=== PATIENT | male | born 1940 | race Two or more races ===

== ENCOUNTER 2017-02-01 11:19 | Emergency (ER) | payer OTHER ==
[~2017-02-01 11:19] MED LIST: DIGOXIN0.25 M1 PO; MECLIZINE HCL25 M1 PO; METOPROLOL SUCC50 M1 PO; MOT600 PO; ZOC20 PO
[2017-02-01 12:01] LABS: BASOPHIL % 0.6 % (0-2)
[2017-02-01 12:02] LABS: PLATELET COUNT 126 x10^3mcL (130-400); RED CELL DISTRIBUTION WIDTH 16.2 % (11.5-14.5)
[2017-02-01 12:03] LABS: microscopic required? NO
[2017-02-01 12:13] LABS: urine erythrocyte NEGATIVE (NEGATIVE)
[2017-02-01 12:36] LABS: CARBON DIOXIDE 22.5 mmol/L (21-32); CHLORIDE SERUM 104 mmol/L (98-107); CREATININE SERUM 0.8 mg/dL (0.7-1.3); GLUCOSE SERUM 122 mg/dL (74-106); POTASSIUM SERUM 3.8 mmol/L (3.5-5.1); SODIUM SERUM 139 mmol/L (136-145)
[2017-02-01 12:41] LABS: ALBUMIN 3.6 g/dL (3.4-5.0); ALKALINE PHOSPHATASE 99 U/L (46-116); ALT/SGPT 38 U/L (16-63); AST/SGOT 31 U/L (15-37); BILIRUBIN TOTAL 0.48 mg/dL (0.20-1.00); MAGNESIUM 2.1 mg/dL (1.8-2.4); TOTAL PROTEIN, SERUM 6.7 g/dL (6.4-8.2)
[2017-02-01 13:36] VITALS: BP 136/74
== END 2017-02-01 13:36 | disposition home or self-care (01) ==
LOC: ED 11:19
PROVIDERS: Emergency Medicine
DX: M54.9 Dorsalgia, unspecified (principal); R60.0 Localized edema; I48.91 Unspecified atrial fibrillation; E78.5 Hyperlipidemia, unspecified
CPT/HCPCS: 83880

== ENCOUNTER 2017-06-05 16:44 | Inpatient (IN) | payer OTHER ==
[~2017-06-05] VITALS: Ht 154.9 cm; Wt 73.1 kg
[2017-06-05 18:53] LABS: CALCIUM 8.5 mg/dL (8.5-10.1); CARBON DIOXIDE 20.1 mmol/L (21-32); CHLORIDE SERUM 96 mmol/L (98-107); CREATININE SERUM 0.7 mg/dL (0.7-1.3); GLUCOSE SERUM 98 mg/dL (74-106); POTASSIUM SERUM 3.7 mmol/L (3.5-5.1); SODIUM SERUM 131 mmol/L (136-145)
[2017-06-05 18:56] LABS: ALBUMIN 3.5 g/dL (3.4-5.0); ALKALINE PHOSPHATASE 131 U/L (46-116); ALT/SGPT 93 U/L (16-63); AST/SGOT 114 U/L (15-37); BILIRUBIN TOTAL 0.8 mg/dL (0.20-1.00); PHOSPHOROUS 4.6 mg/dL (2.5-4.9); TOTAL PROTEIN, SERUM 7.8 g/dL (6.4-8.2); URIC ACID 4.4 mg/dL (3.5-7.2)
[2017-06-05 19:00] LABS: CHOLESTEROL 264 mg/dL (<200)
[2017-06-05 19:21] LABS: PLATELET COUNT 120 x10^3mcL (130-400); RED CELL DISTRIBUTION WIDTH 16.8 % (11.5-14.5)
[2017-06-05 19:56] LABS: MONOCYTE 9 % (0-7); SEGMENTED NEUTROPHILS 53 % (37-75)
[2017-06-05 19:57] LABS: BAND NEUTROPHIL 1 % (0-10); BASOPHIL 0 % (0-2); PLATELET MORPHOLOGY LARGE PLATELET SEEN; rbc morphology (normal/abnorm) ABNORMAL (NORMAL)
[2017-06-05 21:07] LABS: T3 TOTAL 0.77 ng/mL
[2017-06-05 21:11] LABS: FREE T4 0.88 ng/dL (0.76-1.46); FREE THYROXINE INDEX 2.7 ug/dL (1.4-4.5); T4(THYROXINE) 6.6 ug/dL (4.7-13.3)
[2017-06-05 21:14] VITALS: BP 113/78
[2017-06-05 21:16] LABS: CHOLESTEROL/HDL RATIO 1.4
[2017-06-06 04:50] VITALS: BP 145/95
[2017-06-06 09:00] LABS: microscopic required? NO
[2017-06-06 10:00] VITALS: BP 144/89
[2017-06-06 10:00] LABS: urine erythrocyte NEGATIVE (NEGATIVE)
[2017-06-06 10:04] LABS: AMPHETAMINE QUAL UR NONE DETECTED (NEG <=1000)
[2017-06-06 17:04] VITALS: BP 150/81
[2017-06-06 20:43] VITALS: BP 122/76
[2017-06-07 05:02] VITALS: BP 155/85
[2017-06-07 06:00] LABS: BASOPHIL % 0.4 % (0-2); PLATELET COUNT 138 x10^3mcL (130-400)
[2017-06-07 06:08] LABS: AMYLASE 70 U/L (25-115); CALCIUM 8.9 mg/dL (8.5-10.1); CARBON DIOXIDE 22.4 mmol/L (21-32); CHLORIDE SERUM 98 mmol/L (98-107); CREATININE SERUM 0.9 mg/dL (0.7-1.3); GLUCOSE SERUM 109 mg/dL (74-106); LIPASE 153 IU/L (73-393); POTASSIUM SERUM 3.7 mmol/L (3.5-5.1); SODIUM SERUM 135 mmol/L (136-145)
[2017-06-07 06:31] LABS: RED CELL DISTRIBUTION WIDTH 16.3 % (11.5-14.5)
[2017-06-07 08:52] VITALS: BP 128/77
[2017-06-07 14:00] VITALS: BP 125/82
[2017-06-07 18:21] VITALS: BP 117/74
[2017-06-07 21:14] VITALS: BP 134/81
[2017-06-08 05:04] VITALS: BP 118/69
[2017-06-08 06:32] LABS: PLATELET COUNT 128 x10^3mcL (130-400); RED CELL DISTRIBUTION WIDTH 16.2 % (11.5-14.5)
[2017-06-08 06:55] LABS: CARBON DIOXIDE 23.5 mmol/L (21-32); CHLORIDE SERUM 101 mmol/L (98-107); GLUCOSE SERUM 74 mg/dL (74-106); POTASSIUM SERUM 3.7 mmol/L (3.5-5.1); SODIUM SERUM 137 mmol/L (136-145)
[2017-06-08 06:56] LABS: CALCIUM 8.7 mg/dL (8.5-10.1); CREATININE SERUM 0.8 mg/dL (0.7-1.3)
[2017-06-08 10:00] VITALS: BP 97/69
[2017-06-08 12:31] LABS: BAND NEUTROPHIL 3 % (0-10); BASOPHIL 0 % (0-2); MONOCYTE 7 % (0-7); PLATELET MORPHOLOGY PLATELETS DECREASED; SEGMENTED NEUTROPHILS 79 % (37-75); rbc morphology (normal/abnorm) NORMAL (NORMAL)
[2017-06-08 13:55] VITALS: BP 146/71
[2017-06-08 18:16] VITALS: BP 144/85
[2017-06-08] MEDS ORDERED: COUMADIN4 MG PO (18:43)
[2017-06-08] MEDS ORDERED: THI100 PO ×2 (18:44→20:31)
[2017-06-08] MEDS ORDERED: FOL1 PO ×2 (18:45→20:31)
[2017-06-08] MEDS ORDERED: MECLIZINE HYDRO25 M1 PO (18:54)
[2017-06-08] MEDS ORDERED: METOPROLOL SUCC50 M2 PO (18:54)
[2017-06-08 18:56] VITALS: BP 144/85
== END 2017-06-08 19:40 | disposition home or self-care (01) | DRG 917 ==
LOC: ED 16:44 → DU 20:17
PROVIDERS: Emergency Medicine; Student in an Organized Health Care Education/Training Program; ADMIT Family Medicine
DX: T51.0X1A Toxic effect of ethanol, accidental (unintentional), initial encounter (principal); G92 Toxic encephalopathy; K85.90 Acute pancreatitis without necrosis or infection, unspecified; F10.231 Alcohol dependence with withdrawal delirium; E87.1 Hypo-osmolality and hyponatremia; E87.2 Acidosis; I48.2 Chronic atrial fibrillation; E78.5 Hyperlipidemia, unspecified; Z68.30 Body mass index [BMI] 30.0-30.9, adult; Z95.3 Presence of xenogenic heart valve; Z91.81 History of falling; Y90.8 Blood alcohol level of 240 mg/100 ml or more; Y92.009 Unspecified place in unspecified non-institutional (private) residence as the place of occurrence of the external cause
CPT/HCPCS: 82962; 83880; 84439; G0480; J1200; J1630; J2060; J2270; J7030; J8597

== ENCOUNTER 2017-08-09 09:14 | Emergency (ER) | payer OTHER ==
[~2017-08-09 09:14] MED LIST changes: +COUMADIN4 MG PO; +FOL1 PO; +MECLIZINE HYDRO25 M1 PO; +METOPROLOL SUCC50 M2 PO; +THI100 PO
[2017-08-09 11:20] VITALS: BP 155/90
== END 2017-08-09 11:20 | disposition home or self-care (01) ==
LOC: ED 09:14
DX: S50.01XA Contusion of right elbow, initial encounter (principal); S80.02XA Contusion of left knee, initial encounter; M70.31 Other bursitis of elbow, right elbow; I10 Essential (primary) hypertension; E11.69 Type 2 diabetes mellitus with other specified complication; E11.9 Type 2 diabetes mellitus without complications; Z79.01 Long term (current) use of anticoagulants; Z86.79 Personal history of other diseases of the circulatory system; W54.8XXA Other contact with dog, initial encounter; Y93.89 Activity, other specified; Y99.8 Other external cause status; Y92.89 Other specified places as the place of occurrence of the external cause
CPT/HCPCS: 90715

== ENCOUNTER 2017-08-18 16:50 | Emergency (ER) | payer OTHER ==
[~2017-08-18] VITALS: Ht 152.4 cm; Wt 68.0 kg
[2017-08-18 19:08] LABS: BASOPHIL % 0.7 % (0-2); PLATELET COUNT 203 x10^3mcL (130-400); RED CELL DISTRIBUTION WIDTH 13.6 % (11.5-14.5)
[2017-08-18 19:14] LABS: microscopic required? NO
[2017-08-18 19:18] LABS: CALCIUM 8.8 mg/dL (8.5-10.1); CARBON DIOXIDE 27.9 mmol/L (21-32); CHLORIDE SERUM 98 mmol/L (98-107); CREATININE SERUM 0.9 mg/dL (0.7-1.3); GLUCOSE SERUM 102 mg/dL (74-106); POTASSIUM SERUM 4.1 mmol/L (3.5-5.1); SODIUM SERUM 133 mmol/L (136-145)
[2017-08-18 19:23] LABS: ALBUMIN 3.6 g/dL (3.4-5.0); ALKALINE PHOSPHATASE 93 U/L (46-116); ALT/SGPT 37 U/L (16-63); AST/SGOT 24 U/L (15-37); BILIRUBIN TOTAL 0.58 mg/dL (0.20-1.00); LIPASE 184 IU/L (73-393); TOTAL PROTEIN, SERUM 7.3 g/dL (6.4-8.2)
[2017-08-18 19:40] LABS: UA SPECIFIC GRAVITY 1.015 (1.005-1.035); urine erythrocyte NEGATIVE (NEGATIVE)
[2017-08-18 20:54] VITALS: BP 157/80
== END 2017-08-18 21:00 | disposition home or self-care (01) ==
LOC: ED 16:50
PROVIDERS: Emergency Medicine
DX: R10.30 Lower abdominal pain, unspecified (principal); M54.9 Dorsalgia, unspecified; F10.129 Alcohol abuse with intoxication, unspecified; I10 Essential (primary) hypertension; E11.9 Type 2 diabetes mellitus without complications; I48.91 Unspecified atrial fibrillation
CPT/HCPCS: 83880; J7030

== ENCOUNTER 2018-10-24 16:25 | Emergency (ER) | payer OTHER ==
[~2018-10-24] VITALS: Ht 162.6 cm; Wt 79.8 kg
[2018-10-24 16:29] VITALS: Ht 162.6 cm; Wt 79.8 kg
[2018-10-24 17:13] LABS: BASOPHIL % 0.4 % (0-2); RED CELL DISTRIBUTION WIDTH 13.7 % (11.5-14.5)
[2018-10-24 17:14] LABS: PLATELET COUNT 128 x10^3mcL (130-400)
[2018-10-24 17:25] LABS: CALCIUM 8.9 mg/dL (8.5-10.1); CARBON DIOXIDE 27.8 mmol/L (21-32); CHLORIDE SERUM 104 mmol/L (98-107); CREATININE SERUM 0.9 mg/dL (0.7-1.3); GLUCOSE SERUM 98 mg/dL (74-106); POTASSIUM SERUM 3.9 mmol/L (3.5-5.1); SODIUM SERUM 140 mmol/L (136-145)
[2018-10-24 17:29] LABS: ALKALINE PHOSPHATASE 115 U/L (46-116); ALT/SGPT 27 U/L (16-63); AST/SGOT 23 U/L (15-37); BILIRUBIN TOTAL 0.62 mg/dL (0.20-1.00); MAGNESIUM 1.9 mg/dL (1.8-2.4); TOTAL PROTEIN, SERUM 7.5 g/dL (6.4-8.2)
[2018-10-24 20:47] VITALS: BP 104/77
== END 2018-10-24 20:47 | disposition home or self-care (01) ==
LOC: ED 16:25
PROVIDERS: Emergency Medicine
DX: R00.2 Palpitations (principal); Z98.890 Other specified postprocedural states
CPT/HCPCS: 36415; 83880; G0480; Q0092

== ENCOUNTER 2018-11-01 10:55 | Emergency (ER) | payer OTHER ==
[~2018-11-01] VITALS: Ht 160 cm; Wt 78.0 kg
[2018-11-01 11:03] VITALS: Ht 160 cm; Wt 78.0 kg
[2018-11-01 14:00] VITALS: BP 148/91
== END 2018-11-01 14:00 | disposition home or self-care (01) ==
LOC: ED 10:55
DX: S01.01XA Laceration without foreign body of scalp, initial encounter (principal); S80.01XA Contusion of right knee, initial encounter; I10 Essential (primary) hypertension; E11.9 Type 2 diabetes mellitus without complications; I48.91 Unspecified atrial fibrillation; W01.0XXA Fall on same level from slipping, tripping and stumbling without subsequent striking against object, initial encounter; Y93.89 Activity, other specified; Y92.89 Other specified places as the place of occurrence of the external cause; Y99.8 Other external cause status
CPT/HCPCS: 90715; J2001

== ENCOUNTER 2018-11-07 09:37 | Emergency (ER) | payer OTHER ==
[~2018-11-07] VITALS: Ht 162.6 cm; Wt 79.4 kg
[2018-11-07 09:48] VITALS: Ht 162.6 cm; Wt 79.4 kg
[2018-11-07 11:56] VITALS: BP 111/65
== END 2018-11-07 12:05 | disposition home or self-care (01) ==
LOC: ED 09:37
DX: S01.01XD Laceration without foreign body of scalp, subsequent encounter (principal); J10.1 Influenza due to other identified influenza virus with other respiratory manifestations; I48.91 Unspecified atrial fibrillation; I10 Essential (primary) hypertension; E11.9 Type 2 diabetes mellitus without complications; W26.8XXD Contact with other sharp object(s), not elsewhere classified, subsequent encounter
CPT/HCPCS: 87804; J0696